=== PATIENT | male | born 1980 | race Hispanic/Latino ===

== ENCOUNTER 2024-01-14 22:02 | Emergency (ER) | payer OTHER ==
[~2024-01-14] VITALS: Ht 172.7 cm; Wt 95.3 kg
[2024-01-14 22:30] LABS: BASOPHILS # (AUTO) 0.08 K/uL (0.00-0.20); EOSINOPHILS # (AUTO) 0.48 K/uL (0.00-0.70); EOSINOPHILS % (AUTO) 5.8 % (0.0-8.0); IMMATURE GRANULOCYTE ABSOLUTE 0.03 K/uL (0-1); LYMPHOCYTES # (AUTO) 3.7 K/uL (1.0-4.8); LYMPHOCYTES % (AUTO) 44.4 % (21.0-51.0); MEAN CORPUSCULAR HEMOGLOBIN 30.1 pg (27.0-33.0); MEAN CORPUSCULAR HGB CONC 35.6 g/dL (32.0-36.0); MEAN CORPUSCULAR VOLUME 84.6 fL (79-99); MONOCYTES # (AUTO) 0.7 K/uL (0.1-1.0); MONOCYTES % (AUTO) 7.8 % (3.0-13.0); NEUTROPHILS # (AUTO) 3.4 K/uL (1.8-7.7); NEUTROPHILS % (AUTO) 40.6 % (40.0-77.0); PLATELET COUNT (AUTO) 193 K/uL (130-400); RED BLOOD CELL COUNT(AUTO) 5.32 MIL/uL (4.50-6.20); RED CELL DISTRIBUTION WIDTH 12.9 % (11.0-15.5); WHITE BLOOD COUNT (AUTO) 8.3 K/uL (4.8-10.8)
[2024-01-14 22:41] LABS: CREATININE 1.1 mg/dL (0.5-1.3); POTASSIUM 3.4 mmol/L (3.5-5.1)
[2024-01-14 22:51] LABS: ALBUMIN 3.8 g/dL (3.5-5.0); BILIRUBIN,TOTAL 1.4 mg/dL (0.2-1.0)
[2024-01-14] MEDS: ketOROlac 15MG/ML VIAL (15MG/ML) IV ONE (23:32)
[2024-01-14] MEDS: PANTOPrazole 40 MG/VIAL IVP ONE (23:33)
[2024-01-15] MEDS: LIDOCAINE HCL 1% 20 ML VIAL INJ SCH
[2024-01-15] MEDS ORDERED: CEPH500T PO (00:15)
[2024-01-15] MEDS ORDERED: ONDA-243 PO (00:15)
[2024-01-15] MEDS ORDERED: OMEP40CA21 PO (00:15)
[2024-01-15] MEDS ORDERED: KETO10 PO (00:15)
[2024-01-15] MEDS: ceFAZolin SODIUM 1 GM VIAL IVPB SCH (00:17)
[2024-01-15 00:36] VITALS: BP 150/79; PULSE 77; RESP 16; TEMP 98.6; O2SAT 96
== END 2024-01-15 00:36 | disposition home or self-care (01) ==
LOC: EDH 22:02
DX: S01.01XA Laceration without foreign body of scalp, initial encounter (principal); S06.0XAA Concussion with loss of consciousness status unknown, initial encounter; Z79.899 Other long term (current) drug therapy; W18.39XA Other fall on same level, initial encounter; Y93.89 Activity, other specified; Y92.098 Other place in other non-institutional residence as the place of occurrence of the external cause; Y99.8 Other external cause status
CPT/HCPCS: 99285; 70450; 96374; 71045; 96375 ×2; 80053; 85025; 82948; 36415; 72125; 93005; 12002; J2470; J1885; J0690